=== PATIENT | female | born 2000 | race Two or more races ===

== ENCOUNTER 2019-12-25 10:10 | Emergency (ER) | payer MEDICAID ==
[~2019-12-25] VITALS: Ht 160 cm; Wt 80.0 kg
[~2019-12-25 10:10] MED LIST: [UNRECOGNIZED DRUG - OTHER]
--- NOTE | 2019-12-25 10:44 | NUR ---
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
--- NOTE | 2019-12-25 10:46 | NUR ---
chief clinical dietitian: CALLED FOR PT. PT NOT IN LOBBY AT THIS TIME.
--- NOTE | 2019-12-25 11:01 | NUR ---
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 NO ACUTE DISTRESS NOTED.
--- NOTE | 2019-12-25 11:05 | NUR ---
C/O nausea, diarrhea, and flank pain. NAD. VSS. Will continue to monitor.
[2019-12-25] MEDS ORDERED: SODIUM CHLORIDE 0.9% 1,000ML IVBOLUS ONE (11:30)
[2019-12-25] MEDS ORDERED: PROMETHAZINE 25 MG/ML, 1ML IM ONE (11:30)
[2019-12-25] MEDS ORDERED: PROMETHAZINE 25 MG/ML, 1ML ONE (11:31)
--- NOTE | 2019-12-25 11:38 | NUR ---
IV started. NS hung and phenergan admin. Patient urinated immediately prior to getting into room. Will cath after 1 L NS.
[2019-12-25 11:45] LABS: ALANINE AMINOTRANSFERASE 61 U/L (12-78); ALBUMIN 4.1 g/dL (3.4-5.0); ANION GAP 6 mmol/L (5-15); CALCIUM 8.8 mg/dL (8.5-10.1); CHLORIDE 113 mmol/L (98-107); CREATININE 0.64 mg/dL (0.55-1.02)
[2019-12-25 11:46] LABS: BASOPHILS # (AUTO) 0.02 x10^3/uL (0-0.3); BASOPHILS % (AUTO) 0 % (0-1); EOSINOPHILS # (AUTO) 0.04 x10^3/uL (0-0.8); EOSINOPHILS % (AUTO) 1 % (1-7); LYMPHOCYTES # (AUTO) 1.52 x10^3/uL (1-6.1); LYMPHOCYTES % (AUTO) 26 % (22-44); MD NO; MEAN CORPUSCULAR HEMOGLOBIN 24.8 pg (27.0-34.8); MEAN CORPUSCULAR HGB CONC 32.8 g/dL (32.4-35.8); MEAN CORPUSCULAR VOLUME 75.6 fL (80-100); MEAN PLATELET VOLUME 8.6 fL (7.4-10.4); MONOCYTES # (AUTO) 0.56 x10^3/uL (0-1.4); MONOCYTES % (AUTO) 9 % (2-9); NEUTROPHILS # (AUTO) 3.82 x10^3/uL (1.8-8.0); NEUTROPHILS % (AUTO) 64 % (42-75); PLATELET COUNT 292 x10^3/uL (130-400); RED BLOOD COUNT 5.15 x10^6/uL (3.82-5.3); RED CELL DISTRIBUTION WIDTH 16.2 % (9.6-15.2)
[2019-12-25 11:51] LABS: ALKALINE PHOSPHATASE 69 U/L (45-117); BILIRUBIN,TOTAL 0.6 mg/dL (0.2-1.0); TOTAL PROTEIN 7.6 g/dL (6.4-8.2)
--- NOTE | 2019-12-25 12:03 | NUR ---
Straight cath UA sent to lab. Ambulated with a steady gait to the restroom.
[2019-12-25 12:14] LABS: MICROSCOPIC NOT IND
--- NOTE | 2019-12-25 12:18 | NUR ---
Patient to CT.
--- NOTE | 2019-12-25 13:21 | NUR ---
Resting in [facility]. VSS. Provided with blanket.
[2019-12-25 13:51] VITALS: BP 107/61
--- NOTE | 2019-12-25 13:51 | NUR ---
Patient/Caregiver given discharge instructions and they have confirmed that they understand the instructions. Patient ambulatory with steady gait.
== END 2019-12-25 13:53 | disposition home or self-care (01) ==
LOC: ED 12:07
DX: S29.012A Strain of muscle and tendon of back wall of thorax, initial encounter (principal); R11.2 Nausea with vomiting, unspecified; R19.7 Diarrhea, unspecified; R10.9 Unspecified abdominal pain; R30.9 Painful micturition, unspecified; X58.XXXA Exposure to other specified factors, initial encounter; Y93.89 Activity, other specified; Y92.89 Other specified places as the place of occurrence of the external cause; Y99.8 Other external cause status
CPT/HCPCS: 36415; 74176; 76770; 80053; 81003; 84703; 85025; 96360; 96372; 99285; J2550; J7030